=== PATIENT | male | born 1995 ===

== ENCOUNTER 2017-06-19 18:05 | Emergency (ER) | payer OTHER ==
[~2017-06-19] VITALS: Ht 177.8 cm; Wt 84.8 kg
[2017-06-19 18:18] VITALS: Ht 177.8 cm; Wt 84.8 kg
--- NOTE | 2017-06-19 19:26 | DIAGNOSTIC IMAGING REPORT ---
RIGHT SHOULDER 3 VIEWS CLINICAL HISTORY: Fall with right shoulder pain. FINDINGS: 3 views of the right shoulder are obtained. No prior studies are available for comparison at the time of dictation. The skeletal structures are well mineralized. No fracture or dislocation is seen. The glenohumeral and acromioclavicular joints are preserved. There is mild irregularity of the distal clavicle of indeterminant significance. The overlying soft tissues are normal in appearance. The visualized right lung parenchyma appears clear. IMPRESSION: There is no radiographic evidence of right shoulder fracture or dislocation. Electronically signed by: Kenneth Deng M.D. 06/19/2017 7:24 PM Dictated Date/Time: 06/19/2017 7:23 PM
[2017-06-19] MEDS ORDERED: IBUP-1050 PO (19:40)
[2017-06-19 19:50] VITALS: BP 136/81; PULSE 93; O2SAT 99
--- NOTE | 2017-06-20 20:46 | EMERGENCY ROOM VISIT NOTE ---
ED Visit Note First contact with patient: 18:23 Chief Complaint: Right shoulder pain. History of Present Illness: is a 26-year-old [place] male who ambulates into the ED complaining of superior right shoulder pain. Historically patient reports 2 years ago he had a shoulder injury. He reports after his injury and MRI was performed; he does not remember the results, and he performed physical therapy; he never needed surgery. He felt it had something to do with tendon or ligamentous tissue injuries. Since that time he has intermittent shoulder pain without trauma that is self-limiting and self resolves. It should be noted patient gave me to discs of MRIs to review but I was unable to pull them up into the computer. Patient reports last night he slipped and fell while in the bathroom and struck a shoulder on the edge of the sink. Since that time he has been having pain over the acromioclavicular joint area. He describes this as a sharp and pressure sensation. He rates his discomfort 8/10. His pain is nonradiating. His pain worsens with palpations in all movements of the shoulder except for internal rotation. He has not identified any alleviating factors related to the pain. He has not taken any medication for pain prior to arrival at the hospital. He denies any associated symptoms including neck pain, arm weakness/ numbness/tingling, elbow pain, forearm pain, wrist pain, hand pain. Review of Systems: As noted above in history of present illness. Past Medical History: As previously noted. Current Medications: Patient denies. Allergies to Medications: Patient denies Social History: Patient is currently University student; he feels safe in his home environment; he admits to tobacco use and denies alcohol use. Physical Examination: Vital Signs: Date Time Temp Pulse Resp B/P (MAP) Pulse Ox O2 Delivery O2 Flow Rate FiO2 06/19/17 19:50 93 16 136/81 99 06/19/17 18:18 91 18 98 Room Air GENERAL: 26-year-old male in mild distress due to pain, nontoxic-appearing, afebrile and hemodynamically stable. NEUROLOGICAL: Awake, alert and oriented to person, place and time. Answering questions appropriately and following commands. Good hand eye coordination. SKIN: Warm, dry and pink. No soft tissue trauma noted. BACK: No tenderness over the bony spine. RIGHT UPPER EXTREMITY: Shows no gross deformity but patient has mild deformity over the right acromioclavicular joint. There is mild tenderness in the area and mild swelling but no erythema, bony crepitus or ecchymosis. No tenderness over the clavicle, a humeral head, humeral shaft or scapula. Full range of motion of the shoulder, elbow and forearm. Pain with all movements against resistance. 5/5 muscle strength in all movements of the shoulder, elbow and forearm. Throughout the arm and hand the skin was warm and pink and capillary refill is brisk. He was able to distinguish light sensations through all dermatomes. ED Course: Patient is assessed as noted above. Patient's medication list was reviewed. Patient was offered pain medications and refused. Right Shoulder X-Rays: Was read by myself and the radiologist showing no acute fractures or dislocations. Radiologist noted as I that there was a mild irregularity in the distal clavicle of questionable significance. I felt the acromioclavicular joint was slightly elevated on the clavicle side. Patient was placed in a shoulder immobilizer. Patient was educated about today's findings and instructed on his treatment plan ; he verbalized understanding and agreement with this plan. Clinical Impression: Right acromioclavicular joint separation; type I. Decision-Making: Initially my differential diagnosis I considered acromioclavicular joint separation, clavicle fracture, scapular fracture, humeral head fracture/dislocation and other causes. Disposition: Patient discharged home in stable condition; prior to departure he was reassessed and subjectively reported he was feeling better and rated his discomfort 6/10. Plan: Comfort measures including rest, ice, immobilizer use and alternating ibuprofen and acetaminophen were discussed with the patient. Patient is encouraged to follow-up with orthopedics if no better in 7-10 days. Patient was encouraged return ED for worsening/uncontrolled pain, uncontrolled swelling, right arm weakness/numbness/tingling or any new/concerning symptoms.
== END 2017-06-19 19:50 | disposition home or self-care (01) ==
LOC: C.EDB 18:07 → EDBD 18:07 → C.EDD 19:50
DX: S43.101A Unspecified dislocation of right acromioclavicular joint, initial encounter (principal); W01.198A Fall on same level from slipping, tripping and stumbling with subsequent striking against other object, initial encounter; Y92.091 Bathroom in other non-institutional residence as the place of occurrence of the external cause

== ENCOUNTER → 2017-09-27 | Outpatient (CLI) | payer OTHER ==
[~2017-09-27] MED LIST: GADAVIST IV PRN; IBUP-1050 PO
--- NOTE | 2017-09-27 17:11 | DIAGNOSTIC IMAGING REPORT ---
BRAIN COMBO FOR IAC CLINICAL HISTORY: 21 years-old Male presenting with W/IAC,DIZZINESS when turning head, symptoms began 6 months ago, no change in hearing, no headache. TECHNIQUE: Multisequence, multiplanar MR imaging of the brain was performed before and after the administration of intravenous contrast. Dedicated sequences were evaluation of the internal auditory canals were also performed. IV contrast: 8 mL of Gadavist. COMPARISON: None. FINDINGS: Visualized cranial nerves are within normal limits. Internal auditory canals normal. Normal signal intensity of inner ears structures. No abnormal thickening or enhancement of the cranial nerves. Ventricles and sulci normal in size. Brain parenchyma normal in appearance with preserved dean-white differentiation. No mass effect or midline shift. No restricted diffusion to suggest acute ischemia. No hemorrhage. No extra-axial fluid collection. T2 skull base flow voids preserved. No abnormal parenchymal enhancement. Bone marrow signal intensity within the calvarium within normal limits. Mild mucosal thickening of ethmoid air cells. IMPRESSION: 1. No acute intracranial pathology. No abnormal enhancement. 2. Normal contrast-enhanced examination of the internal auditory canals. Electronically signed by: Kentrell Spence M.D. 09/27/2017 5:09 PM Dictated Date/Time: 09/27/2017 5:01 PM
== END | disposition home or self-care (01) ==
LOC: C.MRI 15:37
PROVIDERS: ATTEND Physician Assistant
DX: H55.00 Unspecified nystagmus (principal); R42 Dizziness and giddiness

== ENCOUNTER → 2017-10-07 | Outpatient (CLI) | payer OTHER ==
--- NOTE | 2017-10-07 10:40 | DIAGNOSTIC IMAGING REPORT ---
NECK MRA HISTORY: R42 [id number] [id number] Vertebral basilar insufficiency TECHNIQUE: Llag-hc-tihpij and gadolinium-enhanced MRA of the neck was performed both before and after the intravenous administration of contrast. All measurements were calculated based on NASCET criteria. COMPARISON STUDY: None. FINDINGS: The aortic arch and proximal great vessels are widely patent. There is no significant stenosis, occlusion, or dissection identified within the bilateral common carotid, internal carotid, or vertebral arteries. There is a dominant left vertebral artery. The right vertebral artery is T2, and likely terminates in a PICA branch. IMPRESSION: No significant stenosis, occlusion, or dissection identified within the carotid or vertebral arteries. Electronically signed by: Jarod Steel M.D. 10/07/2017 10:39 AM Dictated Date/Time: 10/07/2017 10:37 AM
== END | disposition home or self-care (01) ==
LOC: C.MRI 09:32
PROVIDERS: ATTEND Physician Assistant
DX: H55.00 Unspecified nystagmus (principal); G45.0 Vertebro-basilar artery syndrome; R42 Dizziness and giddiness

== ENCOUNTER 2017-12-21 20:44 | Emergency (ER) | payer OTHER ==
[~2017-12-21] VITALS: Ht 172.7 cm; Wt 94.1 kg
[2017-12-21 20:51] VITALS: BP 120/76; TEMP 36.6; Ht 172.7 cm; Wt 94.1 kg
--- NOTE | 2017-12-21 21:53 | DIAGNOSTIC IMAGING REPORT ---
R SHOULDER MIN 2 VIEWS ROUTINE CLINICAL HISTORY: Right shoulder pain COMPARISON: 06/19/2017 DISCUSSION: The patient can internally and external rotations Bolanos. No fractures or dislocations are visualized. There are no visible particular calcifications. IMPRESSION: Unremarkable conventional radiographic evaluation of the right shoulder. Electronically signed by: Jarod Steel M.D. 12/21/2017 9:52 PM Dictated Date/Time: 12/21/2017 9:51 PM
--- NOTE | 2017-12-21 22:19 | EMERGENCY ROOM VISIT NOTE ---
History First contact with patient: 20:56 Chief Complaint: SHOULDER PAIN Stated Complaint: PAIN IN RIGHT SHOULDER History of Present Illness The patient is a 22 year old male who presents to the Emergency Room with complaints of right shoulder pain. The patient states that he has had shoulder pain throughout the day today. He believes that he may have slept on the shoulder wrong. He states that he has a history of impingement of the shoulder and had physical therapy in the past. He has never needed any surgery on the shoulder. He rates the discomfort a 9/10 and states the pain is worsened with any movement of the shoulder. He states that nothing makes the pain better and he has not taken any medications for the pain. He denies any numbness or weakness. Review of Systems A complete 6 point review of systems was reviewed with the patient with pertinent positives and negatives as per history of present illness. All else were negative. Past Medical/Surgical History Medical Problems: (1) No Known Active Medical Problems Family History Hypertension Social History Smoking Status: Current Every Day Smoker Alcohol Use: none Drug Use: none Marital Status: single Housing Status: lives with roommate Occupation Status: student Current/Historical Medications No Active Prescriptions or Reported Meds Physical Exam Vital Signs Date Time Temp Pulse Resp B/P (MAP) Pulse Ox O2 Delivery O2 Flow Rate FiO2 12/21/17 22:28 78 97 12/21/17 20:51 36.6 76 18 120/76 98 Room Air Physical Exam VITALS: Vitals are noted on the nurse's note and reviewed by myself. Vital signs stable. GENERAL: This is a 22-year-old male, in no acute distress, nondiaphoretic, well- developed well-nourished. SKIN: No erythema or warmth. MUSCULOSKELETAL: No deformity of the right shoulder. Tenderness over the lateral aspect of the right shoulder. Full range of motion. Strength 5/5 throughout all range of motions of the shoulder. NEURO: Patient was alert and oriented to person place and time. Distal sensation intact. Medical Decision & Procedures ER Provider Diagnostic Interpretation: R SHOULDER MIN 2 VIEWS ROUTINE CLINICAL HISTORY: Right shoulder pain COMPARISON: 06/19/2017 DISCUSSION: The patient can internally and external rotations Bolanos. No fractures or dislocations are visualized. There are no visible particular calcifications. IMPRESSION: Unremarkable conventional radiographic evaluation of the right shoulder. Medical Decision Differential diagnosis includes ligamentous injury, rotator cuff injury, impingement syndrome, calcific tendinitis, among others. The patient was evaluated as above. Right shoulder x-ray was obtained and read by radiology as above. Patient has had issues with his right shoulder in the past. He was given a referral for orthopedics locally. He was instructed to take anti-inflammatories at home. He verbalized understanding of my assessment and treatment plan and was discharged home in good condition. Medication Reconcilliation Current Medication List: was personally reviewed by me Blood Pressure Screening Patient's blood pressure: Normal blood pressure Impression Primary Impression: Right shoulder pain Departure Information Dispostion Home / Self-Care Condition GOOD Prescriptions No Active Prescriptions or Reported Meds Referrals No Doctor, Assigned (PCP) Lake Funk MD Patient Instructions My [facility] Additional Instructions You have been treated in the Emergency Department for Shoulder Pain. Ibuprofen, 600 mg every 6 hours. If this is a recent injury (<24 hrs), ice can be applied to the area of pain for the first 3 days to help decrease pain and inflammation. You have been provided the number for an Orthopaedic Surgeon. You should call this number as soon as possible to establish a follow-up visit from today's Emergency Department visit. Wear the sling as needed for pain. While wearing the sling, make sure to perform range of motion exercises with the shoulder. Return to the Emergency Department if your current symptoms worsen despite treatment course outlined above, or if you develop any of the following symptoms : intractable pain despite aforementioned treatment course or new onset of numbness or tingling of the arm. Problem Qualifiers Primary Impression: Right shoulder pain Chronicity: acute Qualified Codes: M25.511 - Pain in right shoulder
[2017-12-21 22:28] VITALS: PULSE 78; O2SAT 97
== END 2017-12-21 22:27 | disposition home or self-care (01) ==
LOC: C.EDB 20:45 → C.EDD 22:27
DX: M25.511 Pain in right shoulder (principal); Z87.39 Personal history of other diseases of the musculoskeletal system and connective tissue; F17.200 Nicotine dependence, unspecified, uncomplicated